=== PATIENT | male | born 1980 | race Caucasian/White ===

== ENCOUNTER 2018-04-13 10:37 | Emergency (ER) | payer OTHER ==
[~2018-04-13] VITALS: Ht 165.1 cm; Wt 83.0 kg
[~2018-04-13 10:37] MED LIST: ULTRAM50 MG PO
[2018-04-13] MEDS ORDERED: NAPROSYN500 MG PO (10:49)
[2018-04-13] MEDS ORDERED: NORCO 5-325 TA1 EACH PO (10:58)
== END 2018-04-13 11:45 | disposition home or self-care (01) ==
LOC: ED 10:37
DX: S86.112A Strain of other muscle(s) and tendon(s) of posterior muscle group at lower leg level, left leg, initial encounter (principal); R03.0 Elevated blood-pressure reading, without diagnosis of hypertension; Z88.0 Allergy status to penicillin; X50.1XXA Overexertion from prolonged static or awkward postures, initial encounter; Y93.67 Activity, basketball; Y92.89 Other specified places as the place of occurrence of the external cause; Y99.8 Other external cause status